=== PATIENT | female | born 1995 | race Hispanic/Latino ===

== ENCOUNTER 2019-09-13 05:04 | Inpatient (IN) ==
[2019-09-13] MEDS ORDERED: TYLENOL PO PRN (05:06)
[2019-09-13] MEDS ORDERED: REGLAN PO PRN (05:06)
[2019-09-13] MEDS ORDERED: PEPCID PO PRN ×2 (05:06)
[2019-09-13] MEDS ORDERED: KEFZOL 2 GM/D5W 2 GM/50 ML IVPB IV PRN (05:06)
[2019-09-13] MEDS ORDERED: ZOFRAN IV PRN (05:06)
[2019-09-13] MEDS ORDERED: PEPCID IV PRN (05:06)
[2019-09-13] MEDS ORDERED: AMPICILLIN 2 GM in NS 100 ML IV ONE (05:06)
[2019-09-13] MEDS ORDERED: STADOL IV PRN (05:06)
[2019-09-13] MEDS ORDERED: SODIUM CHLORIDE 0.9% INJ SCH (05:15)
[2019-09-13] MEDS: LR 1,000 ML IV SCH ×3 (05:30→15:06)
[2019-09-13 05:52] LABS: URINE SOURCE VOIDED
[2019-09-13 05:58] LABS: BASO# 0.02 X1000 (0.0-0.2); BASO% 0.3 % (0.0-0.8); EOS# 0.02 X1000 (0.0-0.7); EOS% 0.3 % (0.0-10.0); HEMATOCRIT 36.3 % (37.0-47.0); HEMOGLOBIN 11.5 g/dL (12.0-16.0); IMM GRAN# 0.03 X1000 (0.0-0.04); IMM GRAN% 0.4 % (0.0-0.5); LYMPH# 2.84 X1000 (1.2-3.4); LYMPH% 39.9 % (20.5-51.1); MCH 28.3 PG (27-31); MCHC 31.7 g/dL (33-37); MCV 89.2 FL (81-99); MONO# 0.52 X1000 (0.11-0.59); MONO% 7.3 % (1.7-9.3); MPV 11.1 FL (7.4-10.4); NEUT# 3.68 X1000 (1.4-6.5); NEUT% 51.8 % (42.2-75.2); PLT 222 X1000 (130-400); RBC 4.07 XMIL (4.2-5.4); RDW 14.1 % (11.5-14.5); WBC 7.11 X1000 (4.8-10.8)
[2019-09-13 05:58] LABS: BILIRUBIN URINE NEGATIVE (NEGATIVE); BLOOD URINE MODERATE (NEGATIVE); COLOR ORANGE; GLUCOSE URINE NEGATIVE (NEGATIVE); KETONE URINE NEGATIVE (NEGATIVE); LEUKOCYTES URINE LARGE (NEGATIVE); NITRITE URINE NEGATIVE (NEGATIVE); PH URINE 6.5; PROTEIN URINE 50 mg/dL (NEGATIVE); SP GRAVITY URINE 1.017; TURBIDITY URINE TURBID (CLEAR); UROBILINOGEN URINE NORMAL (NORMAL)
[2019-09-13 06:06] LABS: UR AMPHETAMINES QUAL NONE DETECTED (NONE DETECT); UR BARBITUATES QUAL NONE DETECTED (NONE DETECT); UR BENZODIAZEPIN QUAL NONE DETECTED (NONE DETECT); UR CANNABINOIDS QUAL NONE DETECTED (NONE DETECT); UR COCAINE QUAL NONE DETECTED (NONE DETECT); UR METHADONE QUAL NONE DETECTED (NONE DETECT); UR OPIATES QUAL NONE DETECTED (NONE DETECT); UR OXYCODONE QUAL NONE DETECTED (NONE DETECT); UR PCP QUAL NONE DETECTED (NONE DETECT)
[2019-09-13] MEDS: PITOCIN 30 UNITS/NS 30 UNIT/500 ML IV.SOLN IV SCH ×2 (06:30→19:02)
[2019-09-13] MEDS ORDERED: MINERAL OIL TOP PRN (07:19)
[2019-09-13] MEDS ORDERED: XYLOCAINE-MPF 1% INJ PRN ×2 (07:19→18:49)
[2019-09-13] MEDS ORDERED: FENTANYL IV ONE (07:30)
[2019-09-13] MEDS ORDERED: NAROPIN 0.2% INJ ONE (07:30)
[2019-09-13] MEDS ORDERED: FENTANYL-BUPIV-NS 500 MCG-0.125% 250 ML EPIDURAL SCH (08:00)
[2019-09-13] MEDS: AMPICILLIN 1 GM in NS 50 ML IV SCH ×2 (09:19→14:02)
--- NOTE | 2019-09-13 11:30 | HISTORY AND PHYSICAL ---
HISTORY OF PRESENT ILLNESS: The patient is a 24-year-old female G3, P2 at 39 and 3/7 weeks for labor induction. Patient is noted to have a group B strep positive culture at 36 weeks. She is also being treated for gestational diabetes with metformin 500 mg b.i.d. Blood sugars have been well controlled with this regimen. No other labs. Otherwise routine obstetrical care. PAST MEDICAL HISTORY: Unremarkable except for the above-noted gestational diabetes. PAST SURGICAL HISTORY: None. PAST OB HISTORY: G3, P2. Spontaneous vaginal delivery x2. Her largest child was 9 pounds at . 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 REVIEW OF SYSTEMS: All systems reviewed and noncontributory. FAMILY HISTORY: Significant for diabetes mellitus. SOCIAL HISTORY: Tobacco use none. Alcohol use none. MEDICATIONS: Metformin 500 mg b.i.d. and vitamins. ALLERGIES: No known drug allergies. PHYSICAL EXAMINATION: VITAL SIGNS: Height 5 feet 4 inches. Weight 181 pounds. Temperature 97.6 degrees, blood pressure 107/72, pulse of 85, respirations 20. heart rate in the 150s with lisn-fw-[id number] variability. HEENT: Pupils equal, round, reactive to light and accommodation extraocular movements intact. Oropharynx clear. NECK: Supple. No thyromegaly. LUNGS: Clear to auscultation. HEART: Regular rate and rhythm. ABDOMEN: Gravid, nontender. PELVIC EXAM: Cervix was dilated 4 cm, 50% effaced, -2 station, slightly posterior vertex presentation was noted. EXTREMITIES: No clubbing, cyanosis, or edema noted. NEUROLOGIC: Cranial nerves 2-12 grossly intact. Motor 5/5. DTRs 2+ bilaterally of lower extremities. ASSESSMENT AND PLAN: A 24-year-old female G3, P2 at 39 and 3/7 weeks with favorable cervix for labor induction. Patient with group B strep positive culture. Will treat per protocol with antibiotics during labor course. The patient may have epidural; anticipate a vaginal delivery. cc: Miguel Ndiaye III, MD
[2019-09-13] MEDS ORDERED: BENADRYL IV PRN (18:49)
[2019-09-13] MEDS ORDERED: HYDROXYZINE IM PRN (18:49)
[2019-09-13] MEDS ORDERED: MINERAL OIL PO PRN (18:49)
[2019-09-13] MEDS ORDERED: PERI MEDS (DERMOPLAST/NUPERCAINAL/TUCKS) MISC PRN (18:49)
[2019-09-13] MEDS ORDERED: AMBIEN PO PRN (18:49)
[2019-09-13] MEDS ORDERED: ATARAX PO PRN (18:49)
[2019-09-13] MEDS ORDERED: BOOSTRIX VACCINE IM ONE (18:49)
[2019-09-13] MEDS ORDERED: NORCO-5 PO PRN (18:49)
[2019-09-13] MEDS ORDERED: BENADRYL PO PRN (18:49)
[2019-09-13] MEDS ORDERED: PITOCIN IM PRN (18:49)
[2019-09-13] MEDS ORDERED: M-M-R II VACCINE SUBQ ONE (18:49)
[2019-09-13] MEDS ORDERED: CYTOTEC PO PRN (18:49)
[2019-09-13] MEDS ORDERED: PITOCIN 20 UNITS/NS 20 UNITS/1,000 ML IV.SOLN IV SCH (19:00)
[2019-09-13] MEDS ORDERED: PITOCIN 30 UNITS/NS 30 UNIT/500 ML IV.SOLN IV SCH (19:00)
[2019-09-13] MEDS: PERICOLACE PO SCH (20:36)
[2019-09-13] MEDS: MOTRIN PO PRN (20:36)
--- NOTE | 2019-09-14 01:22 | OPERATIVE NOTE ---
PROCEDURE DATE: 09/13/2019 DELIVERY NOTE: The patient progressed to complete and pushing. Had spontaneous vaginal delivery of a male infant, 9 pounds 3 ounces with 's of 9 and 10 at 18:27 hours on 09/13/2019 over a second-degree midline episiotomy. Cord blood sample was obtained at this time. Placenta was then delivered intact with 3-vessel cord. Second-degree midline episiotomy repaired with 3-0 chromic in usual fashion. ANESTHESIA: Epidural. ESTIMATED BLOOD LOSS: 200 mL. COUNTS: All counts were correct x2. cc: Miguel Ndiaye III, MD
[2019-09-14] MEDS: NORCO-10 PO PRN ×3 (04:35→23:37)
[2019-09-14] MEDS: MOTRIN PO PRN ×3 (04:35→23:37)
[2019-09-14] MEDS: LR 1,000 ML IV SCH (05:16)
[2019-09-14 05:46] LABS: BASO# 0.01 X1000 (0.0-0.2); BASO% 0.1 % (0.0-0.8); EOS# 0.04 X1000 (0.0-0.7); EOS% 0.4 % (0.0-10.0); HEMATOCRIT 32.4 % (37.0-47.0); IMM GRAN# 0.02 X1000 (0.0-0.04); IMM GRAN% 0.2 % (0.0-0.5); LYMPH% 31.7 % (20.5-51.1); MCH 28.1 PG (27-31); MCHC 30.9 g/dL (33-37); MONO# 1.12 X1000 (0.11-0.59); MONO% 11.1 % (1.7-9.3); MPV 10.9 FL (7.4-10.4); NEUT# 5.72 X1000 (1.4-6.5); NEUT% 56.5 % (42.2-75.2); PLT 207 X1000 (130-400); RBC 3.56 XMIL (4.2-5.4); RDW 14.3 % (11.5-14.5); WBC 10.11 X1000 (4.8-10.8)
--- NOTE | 2019-09-14 07:36 | OB/GYN PROGRESS NOTE ---
- Subjective 24 yo PPD#1 s/p at 39w3d with A2-GDM, GBS positive Patient seen and examined. Pain is controlled. She is voiding without difficulty. She is tolerating a regular diet and denies nausea/vomiting. She notes normal lochia. She states baby is doing well. She is bottle-feeding. She plans for the nuva-ring for pp contraception. OB Physical Exam Vital Signs - 8 hr 09/14/19 04:00 Temperature 97.8 F Pulse Rate 83 Respiratory Rate 18 Blood Pressure 93/53 O2 Sat by Pulse Oximetry 99 - CONSTITUTIONAL General Appearance: appears well, alert, no apparent distress - HEAD, EARS, NOSE, MOUTH & THROAT HENMT: normocephalic/atraumatic - RESPIRATORY Respiratory: lungs clear, normal breath sounds, no respiratory distress - CARDIOVASCULAR Cardiovascular: normal peripheral pulses, regular rate, rhythm - GASTROINTESTINAL (ABDOMEN) Abdominal Exam: non tender, soft, other (fundus firm, below umbilicus) - MUSCULOSKELETAL Extremity: normal range of motion, non-tender, no pedal edema, no calf tenderness - SKIN Integumentary: normal color - NEUROLOGIC Neurologic: grossly normal - PSYCHIATRIC Psych/Mental Status: normal mood/affect Active Medications Generic Name Dose Route Start Last Admin Trade Name Freq PRN Reason Stop Dose Admin Acetaminophen 650 mg 09/13/19 05:06 Tylenol PO Q4-6H PRN PRN Headache Hydrocodone Bitart/Acetaminophen 1 each 09/13/19 18:49 09/14/19 04:35 [place]-10 PO 1 each Q3-4H PRN PRN Administration Pain (7-10 on Pain Scale) Hydrocodone Bitart/Acetaminophen 1 each 09/13/19 18:49 [place]-5 PO Q3-4H PRN PRN Pain (1-6 on Pain Scale) Benzocaine 1 each 09/13/19 18:49 [facility] (Dermoplast/Nupercainal/Tucks) MISC 3-4XDAY PRN PRN episiotomy/hemorrhoids Butorphanol Tartrate 2 mg 09/13/19 05:06 Stadol IV PRN PRN Pain Diphenhydramine HCl 12.5 mg 09/13/19 18:49 Benadryl IV Q4H PRN PRN Itching Diphenhydramine HCl 25 mg 09/13/19 18:49 Benadryl PO Q4H PRN PRN Itching Famotidine 20 mg 09/13/19 05:06 Pepcid PO ONCE PRN PRN section Famotidine 20 mg 09/13/19 05:06 Pepcid IV Q12H PRN PRN GI upset or indigestion Famotidine 40 mg 09/13/19 05:06 Pepcid PO Q12H PRN PRN GI upset or indigestion Hydroxyzine HCl 50 mg 09/13/19 18:49 Atarax PO Q3-4H PRN PRN Nausea Hydroxyzine HCl 50 mg 09/13/19 18:49 Hydroxyzine IM Q3-4H PRN PRN Nausea Cefazolin Sodium/Dextrose 2 gm in 50 mls @ 50 mls/hr 09/13/19 05:06 Kefzol 2 Gm/D5w IV ONCE PRN PRN section Oxytocin/Sodium Chloride 30 unit in 500 mls @ 0 mls/hr 09/13/19 05:15 09/13/19 19:02 Pitocin 30 Units/Ns IV 500 mls/hr .Q0M ITFFANI Administration As Directed Fentanyl/Bupivacaine/Sodium Chlor 250 mls @ 0 mls/hr 09/13/19 08:00 09/13/19 10:02 Qaahxwla-Ugvrt-Dn 500 Mcg-0.125% EPIDURAL 10 mls/hr .Q0M TIFFANI Administration As Directed Oxytocin/Sodium Chloride 20 units in 1,000 mls @ 0 mls/hr 09/13/19 19:00 Pitocin 20 Units/Ns IV .Q0M TIFFANI As Directed Ibuprofen 800 mg 09/13/19 18:49 09/14/19 04:35 Motrin PO 800 mg Q8H PRN PRN Administration cramping Lidocaine HCl 30 ml 09/13/19 07:19 Xylocaine-Mpf 1% INJ PRN PRN vaginal repair Lidocaine HCl 30 ml 09/13/19 18:49 Xylocaine-Mpf 1% INJ PRN PRN Perineal repair Metoclopramide HCl 10 mg 09/13/19 05:06 Reglan PO ONCE PRN PRN section Mineral Oil 30 ml 09/13/19 07:19 Mineral Oil TOP PRN PRN lubrication Mineral Oil 30 ml 09/13/19 18:49 Mineral Oil PO PRN PRN Perineal massage Misoprostol 800 microgm 09/13/19 18:49 Cytotec PO PRN PRN Severe bleeding Ondansetron HCl 4 mg 09/13/19 05:06 Zofran IV PRN PRN Nausea Oxytocin 20 unit 09/13/19 18:49 Pitocin IM PRN PRN Severe bleeding Senna/Docusate Sodium 1 each 09/13/19 21:00 09/13/19 20:36 Pericolace PO 1 each QHS TIFFANI Administration Sodium Chloride 5 - 10 ml 09/13/19 05:15 Sodium Chloride 0.9% INJ DIRECTED TIFFANI Zolpidem Tartrate 10 mg 09/13/19 18:49 Ambien PO HS PRN PRN Sleep Laboratory Results - last 24 hr 09/13/19 09/13/19 09/14/19 05:30 05:30 05:31 WBC 10.11 RBC 3.56 L Hgb 10.0 L Hct 32.4 L MCV 91.0 MCH 28.1 MCHC 30.9 L RDW Std Deviation 14.3 Plt Count 207 MPV 10.9 H Immature Gran % (Auto) 0.2 Neut % (Auto) 56.5 Lymph % (Auto) 31.7 [place] % (Auto) 11.1 H Eos % (Auto) 0.4 Baso % (Auto) 0.1 Immature Gran # (Auto) 0.02 Neut # (Auto) 5.72 Lymph # (Auto) 3.20 [place] # (Auto) 1.12 H Eos # (Auto) 0.04 Baso # (Auto) 0.01 Glucose 103 RPR NON-REACTIVE OB Assessment & Plan (1) Status post vaginal delivery Status: Acute Plan: 24 yo PPD#1 s/p at 39w3d with A2-GDM, GBS positive 1. HD stable, afebrile 2. Routine PP care 3. Encourage ambulation 4. Bottle feeding 5. Plans for Nuva-ring for pp contraception
[2019-09-14] MEDS: PERICOLACE PO SCH ×2 (19:25→20:49)
--- NOTE | 2019-09-15 07:14 | OB/GYN PROGRESS NOTE ---
- Subjective Pt seen and examined. Currently w/o complaints. Pt is PPD#2 s/p . Ambulating and urinating w/o difficulty. Tolerating regular diet. Denies f/c/n/v. Admits to decreased lochia. positive breast and bottle feeding OB Physical Exam Vital Signs - 8 hr 09/14/19 23:48 Temperature 96.3 F L Pulse Rate 87 Respiratory Rate 18 Blood Pressure 116/56 O2 Sat by Pulse Oximetry 100 - CONSTITUTIONAL General Appearance: appears well, alert, no apparent distress - RESPIRATORY Respiratory: lungs clear - CARDIOVASCULAR Cardiovascular: regular rate, rhythm - GASTROINTESTINAL (ABDOMEN) Abdominal Exam: non tender, soft (FF below umbilicus) - MUSCULOSKELETAL Extremity: non-tender, no calf tenderness - PSYCHIATRIC Psych/Mental Status: normal mood/affect, oriented x 3 Active Medications Generic Name Dose Route Start Last Admin Trade Name Freq PRN Reason Stop Dose Admin Acetaminophen 650 mg 09/13/19 05:06 Tylenol PO Q4-6H PRN PRN Headache Hydrocodone Bitart/Acetaminophen 1 each 09/13/19 18:49 09/14/19 23:37 [place]-10 PO 1 each Q3-4H PRN PRN Administration Pain (7-10 on Pain Scale) Hydrocodone Bitart/Acetaminophen 1 each 09/13/19 18:49 [place]-5 PO Q3-4H PRN PRN Pain (1-6 on Pain Scale) Benzocaine 1 each 09/13/19 18:49 [facility] (Dermoplast/Nupercainal/Tucks) MISC 3-4XDAY PRN PRN episiotomy/hemorrhoids Diphenhydramine HCl 25 mg 09/13/19 18:49 Benadryl PO Q4H PRN PRN Itching Famotidine 20 mg 09/13/19 05:06 Pepcid PO ONCE PRN PRN section Famotidine 40 mg 09/13/19 05:06 Pepcid PO Q12H PRN PRN GI upset or indigestion Hydroxyzine HCl 50 mg 09/13/19 18:49 Atarax PO Q3-4H PRN PRN Nausea Hydroxyzine HCl 50 mg 09/13/19 18:49 Hydroxyzine IM Q3-4H PRN PRN Nausea Ibuprofen 800 mg 09/13/19 18:49 09/14/19 23:37 Motrin PO 800 mg Q8H PRN PRN Administration cramping Metoclopramide HCl 10 mg 09/13/19 05:06 Reglan PO ONCE PRN PRN section Misoprostol 800 microgm 09/13/19 18:49 Cytotec PO PRN PRN Severe bleeding Oxytocin 20 unit 09/13/19 18:49 Pitocin IM PRN PRN Severe bleeding Senna/Docusate Sodium 1 each 09/13/19 21:00 09/14/19 20:49 Pericolace PO Not Given QHS TIFFANI Zolpidem Tartrate 10 mg 09/13/19 18:49 Ambien PO HS PRN PRN Sleep OB Assessment & Plan (1) Status post vaginal delivery Status: Acute Plan: 24 yo PPD#2 s/p at 39w3d with A2-GDM, GBS positive 1. HD stable, afebrile 2. Routine PP care 3. Encourage ambulation 4. Breast/Bottle feeding 5. Plans for Nuva-ring for pp contraception 6. Plan for d/c home today
[2019-09-15] MEDS: MOTRIN PO PRN (08:01)
[2019-09-15 08:34] VITALS: BP 114/79
== END 2019-09-15 11:15 | disposition home or self-care (01) | DRG 807 ==
LOC: LD 05:04
PROVIDERS: ADMIT Obstetrics & Gynecology; ATTEND Obstetrics & Gynecology